=== PATIENT | female | born 1965 | race American Indian/Alaskan Native ===

== ENCOUNTER 2021-02-17 15:49 | Emergency (ER) | payer SELFPAY ==
--- NOTE | 2021-02-17 18:28 | Emergency Department Report ---
Chief Complaint: Weakness Stated Complaint: DEHYDRATION - HPI History of Present Illness: 55 y/o female comes in via ems for being homeless. Eating and drinking well. Patient is requesting a list for shelters. Denies fever or chills. Denies any pain. No sob, abdominal pain. No nausea or vomiting. No recent falls. Does not take any meds on a daily basic. Denies any SI/HI. Reports she does not have any mental history or medical history. - Exam Vital Signs: Vital Signs 02/17/21 16:01 Temperature 98.9 F Pulse Rate 110 H Respiratory 18 Rate Blood Pressure 107/73 [Right] O2 Sat by Pulse 100 Oximetry Physical Exam: General: Awake, appropriately interactive, no acute distress. Neck: Supple. Full range of motion intact. Cardiovascular: Normal peripheral perfusion. Pulmonary: No respiratory distress. Patient is speaking normally without use of accessory muscles. Skin: No apparent rashes or lesions. Neurological: No facial asymmetry. Speech is clear. Follows commands. Patient is alert and oriented. Musculoskeletal: Full range of motion, no crepitus. No tenderness to palpate nonerythematous no edema test appreciated. Able to bear weight and ambulate without difficulty. Distal neurovascular and motor/sensory function is intact. Psych: Cooperative. Appropriate mood and affect. MSE screening note: Focused history and physical exam performed. Due to findings the following was ordered: ED Disposition for MSE Disposition: DC-01 TO HOME OR SELFCARE Is pt being admited?: No Does the pt Need Aspirin: No Condition: Stable Additional Instructions: Handout given to patient for homeless retirement. [facility] Time of Disposition: 18:44
== END 2021-02-17 19:00 | disposition home or self-care (01) ==
LOC: ED 15:49
DX: E86.0 Dehydration (principal)
CPT/HCPCS: 99283